=== PATIENT | male | born 2000 | race African-American/Black ===

== ENCOUNTER 2019-10-01 12:28 | Emergency (ER) | payer OTHER ==
[2019-10-01 12:35] VITALS: BP 138/52
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
== END 2019-10-01 13:25 | disposition home or self-care (01) ==
LOC: ER 12:28
DX: Z48.02 Encounter for removal of sutures (principal); L03.818 Cellulitis of other sites